=== PATIENT | female | born 2000 | race Two or more races ===

== ENCOUNTER 2018-08-22 00:07 | Emergency (ER) | payer BC, OTHER ==
[2018-08-22] MEDS ORDERED: ERYTHROMYCIN 0.5% OPHTHALMIC OINTMENT 3.5 GM TUBE OU ONE (01:36)
[2018-08-22] MEDS ORDERED: FLUORESCEIN NA 1 EA STRIP OU ONE (01:36)
[2018-08-22] MEDS ORDERED: TETRACAINE 0.5% HCL 0.6ML DROPPER.BOTTLE OU ONE (01:36)
--- NOTE | 2018-08-22 01:36 | PDOC ---
History of Present Illness - General Chief Complaint: Eye Problem Stated Complaint: FOREIGN SUBSTANCE/LT EYE Time Seen by Provider: 08/22/18 01:34 History Source: Patient - History of Present Illness Initial Comments: 08/22/18 02:25 18 year old female with accidentally splashed glue in left eye. patient reports rinsing left eye multiple times. able to open and close eyes. reports " i feel like i have a cut in my eye". no vision changes Past History - Past Medical History Allergies/Adverse Reactions: Allergies Allergy/AdvReac Type Severity Reaction Status Date / Time No Known Allergies Allergy Verified 08/22/18 02:04 Home Medications: Ambulatory Orders Erythromycin 0.5% Eye Ointment [Erythromycin 0.5% Eye Ointment -] 1 applic OP TID #1 tube 08/22/18 Review of Systems - Review of Systems Able to Perform ROS?: Yes Is the patient limited [place] proficient: No HEENTM: Yes: Eye Pain *Physical Exam - Vital Signs 08/22/18 02:29 Last Vital Signs Temp Pulse Resp BP Pulse Ox 98.5 F 73 17 133/75 100 08/22/18 00:10 08/22/18 00:10 08/22/18 00:10 08/22/18 00:10 08/22/18 00:10 - Physical Exam General Appearance: Yes: Appropriately Dressed HEENT: positive: Other (+ flurosiene uptake to left conjuntiva / pupils. snellen 20/20 perrla) Medical Decision Making - Medical Decision Making 08/22/18 02:33 A: corneal abrasion P: eye rinsed thoroughly. incision intact. +corneal abrasion *DC/Admit/Observation/Transfer Diagnosis at time of Disposition: Corneal abrasion, left Qualifiers: Encounter type: initial encounter Qualified Code(s): S05.02XA - Injury of conjunctiva and corneal abrasion without foreign body, left eye, initial encounter - Discharge Dispostion Disposition: HOME - Prescriptions Prescriptions: Erythromycin 0.5% Eye Ointment [Erythromycin 0.5% Eye Ointment -] 1 applic OP TID #1 tube - Referrals Referrals: Yusuf Chase MD [Primary Care Provider] - Flex Dixon [Non Staff, Medical] - Call tomorrow Kole Dixon MD [Staff Physician] - Call tomorrow Marilou Solano MD [Staff Physician] - Call tomorrow Kike Haile MD [Staff Physician] - Call tomorrow - Patient Instructions Printed Discharge Instructions: DI for Corneal Abrasion Additional Instructions: Instill small ribbon of eye ointment to the left eye 3 times a day. Follow-up with an eye doctor as soon as possible Return to the emergency room for any worsening symptoms.. - Post Discharge Activity Forms/Work/School Notes: Back to Work, Back to School
--- NOTE | 2018-08-22 01:41 | PDOC ---
Medical Decision Making - Medical Decision Making 08/22/18 01:40 Patient seen by the advanced practice provider under my direct supervision. Ancillary testing reviewed as necessary. I agree with plan as outlined by the advanced practice provider. *DC/Admit/Observation/Transfer Diagnosis at time of Disposition: Eye pain - Discharge Dispostion Condition at time of disposition: Fair - Referrals Referrals: Yusuf Chase MD [Primary Care Provider] - - Patient Instructions - Post Discharge Activity
[2018-08-22 02:04] VITALS: BP 133/75; PULSE 73; TEMP 98.5; BMI 38.0
[2018-08-22] MEDS ORDERED: TETRACAINE 0.5% OPHTH SOLN 2 ML BOTTLE ONE (02:07)
== END 2018-08-22 03:08 | disposition home or self-care (01) ==
LOC: JER 00:07
DX: S05.02XA Injury of conjunctiva and corneal abrasion without foreign body, left eye, initial encounter (principal); X58.XXXA Exposure to other specified factors, initial encounter; Y93.89 Activity, other specified; Y92.89 Other specified places as the place of occurrence of the external cause
CPT/HCPCS: 99281-25

== ENCOUNTER 2021-12-18 13:27 | Emergency (ER) | payer OTHER ==
[2021-12-18 14:06] VITALS: BMI 39.4
[2021-12-18] MEDS: ALBUTEROL SO4 2.5/IPRATROPIUM 0.5 INH SOL 3 ML VIAL.NEB. NEB SCH ×4 (17:15→18:00)
[2021-12-18] MEDS ORDERED: ALBUTEROL SO4 2.5/IPRATROPIUM 0.5 INH SOL 3 ML VIAL.NEB. NEB ONE (18:03)
[2021-12-18] MEDS ORDERED: AZITHROMYCIN 250 MG TABLET PO ONE (18:48)
[2021-12-18] MEDS ORDERED: AZITHROMYCIN 250 MG TABLET ONE (18:50)
[2021-12-18 19:05] VITALS: RESP 20; TEMP 99
[2021-12-18 19:25] VITALS: BP 176/108; PULSE 73
== END 2021-12-18 19:15 | disposition home or self-care (01) ==
LOC: JER 13:27
PROC: 3E0F7GC Introduction of Other Therapeutic Substance into Respiratory Tract, Via Natural or Artificial Opening (ICD-10-PCS; principal; 2021-12-18)
DX: J18.9 Pneumonia, unspecified organism (principal); I10 Essential (primary) hypertension
CPT/HCPCS: 0241U-QW; 71046-TC-FY; 93005; 93010; 99285-25

== ENCOUNTER 2023-02-10 08:57 | Emergency (ER) | payer OTHER ==
[2023-02-10 09:07] VITALS: BMI 34.8
[2023-02-10 09:51] VITALS: RESP 16
[2023-02-10] MEDS ORDERED: ALBUTEROL SO4 2.5/IPRATROPIUM 0.5 INH SOL 3 ML VIAL.NEB. NEB ONE ×2 (09:52→09:56)
[2023-02-10] MEDS ORDERED: DEXAMETHASONE SOD PHOSPHATE 10 MG/1 ML VIAL PO ONE (09:52)
[2023-02-10] MEDS ORDERED: DEXAMETHASONE SOD PHOSPHATE 10 MG/1 ML VIAL ONE (09:56)
[2023-02-10 12:06] VITALS: BP 127/73; PULSE 88; TEMP 98.2
== END 2023-02-10 12:20 | disposition home or self-care (01) ==
LOC: JER 08:57
PROC: 3E0F7GC Introduction of Other Therapeutic Substance into Respiratory Tract, Via Natural or Artificial Opening (ICD-10-PCS; principal; 2023-02-10)
DX: R05.9 Cough, unspecified (principal); R09.89 Other specified symptoms and signs involving the circulatory and respiratory systems; R06.2 Wheezing; R07.89 Other chest pain; R06.02 Shortness of breath; R09.81 Nasal congestion; J02.9 Acute pharyngitis, unspecified; J31.0 Chronic rhinitis; J00 Acute nasopharyngitis [common cold]; Z20.822 Contact with and (suspected) exposure to COVID-19
CPT/HCPCS: 0241U-QW; 71046-TC-FY; 99284-25; J1100